=== PATIENT | male | born 1980 | race Two or more races ===

== ENCOUNTER → 2019-04-09 | Outpatient (REF) | payer OTHER ==
[2019-04-10 13:47] LABS: CHLAMYDIA DNA AMPLIFICATION NEGATIVE (NEGATIVE); GC DNA AMPLIFICATION NEGATIVE (NEGATIVE)
== END ==
LOC: M SFHCLERA 20:10
PROVIDERS: ATTEND Physician Assistant
DX: R30.0 Dysuria (principal)
CPT/HCPCS: 81002; 87086; 87661; G0463

== ENCOUNTER 2020-06-20 13:47 | Emergency (ER) | payer OTHER ==
[~2020-06-20] VITALS: Ht 185.4 cm; Wt 85.9 kg
[2020-06-20 15:00] VITALS: BP 165/98
--- NOTE | 2020-07-01 12:52 | REP ---
LEFT SHOULDER SERIES: HISTORY: Left shoulder pain, rule out dislocation. FINDINGS: AP and tangential scapular-Y views demonstrate an anterior inferior glenohumeral dislocation. No fracture is visible. The acromioclavicular joint is normally aligned. IMPRESSION: Anterior inferior glenohumeral dislocation. No fracture visible. MTDD
== END 2020-06-20 15:01 | disposition home or self-care (01) ==
LOC: M ED 13:47
DX: M24.412 Recurrent dislocation, left shoulder (principal)